=== PATIENT | male | born 1965 | race Caucasian/White ===

== ENCOUNTER 2020-10-10 09:31 | Emergency (ER) | payer BC, SELFPAY ==
[2020-10-10 09:35] VITALS: BP 134/89; PULSE 86; RESP 19; TEMP 36.8; O2SAT 100; BMI 27.0
--- NOTE | 2020-10-10 10:08 | HMH.EDUTC ---
[facility] [place]ression: Puncture wound Disposition: Home, Self-Care Condition on Discharge: Good Instructions: DI for Puncture Wound Additional Instructions: Keep area clean and dry and allow steri strip to fall off Follow up with Urology as scheduled Return if needed Over the counter Motrin and/or Tylenol as directed on package for pain Straight to ER if any difficulty urinating or any life threatening symptoms Ice packs to the area may help with pain and swelling Referrals: Shari Neil [Primary Care Provider] - As needed Time of Disposition: 10:41 Medical Decision Making - Flynn Inquiry Pt receiving controlled substance: No Flynn was queried for this patient: No Vital Signs: 10/10/20 09:35 10/10/20 10:27 Temperature 98.2 F 98.2 F Temperature Source Oral Pulse Rate 86 Pulse Rate [Left Brachial] 86 Respiratory Rate 19 19 Blood Pressure 134/89 Blood Pressure [Left Arm] 134/89 Blood Pressure Mean [Left Arm] 104 Blood Pressure Source [Left Arm] Automatic Cuff Blood Pressure Position [Left Arm] Sitting 02 Sat by Pulse Oximetry 100 Oxygen Delivery Method Room Air Medical Decision Narrative: Patient states that he is suppose to be having an appointment with Urology and will call and make appointment for further evaluation and treatment No active swelling at this time in his testicles ER physician came to [facility] and viewed area and agreed Steri strip and follow up with Urology as scheduled Steri strip placed on puncture wound no active bleeding [facility] [place] - General Stated complaint: ao @0915 injury to scrotum/testicles Time Seen by Provider: 10/10/20 10:08 Mode of Arrival: Ambulatory Source of Information: Patient Limitations: No Limitations Description of Symptoms (Recalled from Triage Doc. by RN): PATIENT C/O INJURY TO SCROTUM AFTER A DRILL BIT CAUGHT HIM APPROX 30 MINUTES [employer] HEENT Symptoms (Recalled from RN notes): No Resp Symptoms (Recalled from RN notes): No Skin Symptoms (Recalled from RN notes): No MS Symptoms (Recalled from RN notes): No Functional Status (Recalled from RN notes): WNL - History of Present Illness Provider Complaint: Patient states that he was using a drill and was sitting staddle the board when the drill bit caught his shorts and twisted up his shorts and caught his testicle States that he kept his barrings and reversed the drill instead of jerking it states that he noticed a small tear/laceration where the skin on the testicle meets his penis no active bleeding at this time - Related Data Home Medications Medication Instructions Recorded Confirmed Fluticasone/Vilanterol [Breo 1 puff IH DAILY 10/10/20 10/10/20 Ellipta 200-25 Mcg INH] Allergies Allergy/AdvReac Type Severity Reaction Status Date / Time No Known Allergies Allergy Verified 10/10/20 09:48 - Worker's Comp Is this a Worker's Comp case?: No [facility] History - Hepatitis A Screen Drug use history?: No High risk sexual behaviors?: No History of sexually transmitted infection?: No Currently employed?: No Childcare worker?: No Do you have indoor plumbing?: Yes Do you have electricity?: Yes Attestation statement:: This patient has been screened for Hepatitis A risk factors. I have reviewed the patient's past medical history: Yes - 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 Alcohol Intake: never Occupational Status: other ROS Obtained: Yes All systems reviewed & no additional complaints, Yes Systems reviewed as appropriate & no additional complaints - Constitutional Constitutional: Reports system reviewed and no additional complaints, except as docu - ENT Ears, Nose, Mouth, and Throat: Reports system reviewed and no additional complaints, except as docu - Cardiovascular Cardiovascular: Reports system reviewed and no additional complaints, except as docu - Respiratory Respiratory: Reports system reviewed and no additional complaints, except as docu - Gastrointestinal Gastrointestin
[2020-10-10 10:27] VITALS: BP 134/89; PULSE 86; RESP 19; TEMP 36.8; O2SAT 100
== END 2020-10-10 10:30 | disposition home or self-care (01) ==
PROVIDERS: Emergency Provider Nurse Practitioner; PCP Family Medicine
DX: S31.33XA Puncture wound without foreign body of scrotum and testes, initial encounter (principal); W31.0XXA Contact with mining and earth-drilling machinery, initial encounter; Y92.9 Unspecified place or not applicable
CPT/HCPCS: 99202; G0463

== ENCOUNTER 2021-01-08 12:33 | Emergency (ER) | payer BC, SELFPAY ==
[2021-01-08 12:34] VITALS: BP 132/88; PULSE 78; RESP 16; TEMP 36.9; O2SAT 95; BMI 28.8
--- NOTE | 2021-01-08 13:38 | HMH.EDUTC ---
[facility] [place] Clinical Impression: Poison orula dermatitis Contact dermatitis Qualifiers: Contact dermatitis type: unspecified Contact dermatitis trigger: unspecified trigger Qualified Code(s): L25.9 - Unspecified contact dermatitis, unspecified cause Disposition: Home, Self-Care Condition on Discharge: Good Instructions: DI for Poison Roula Allergy Additional Instructions: Avoid contact with the offending substance (poison roula). Don't start the oral steroids until tomorrow. Don't put the topical steroids (triamcinolone) on your face or your groin. Follow up with your regular doctor. GO TO THE ER FOR ANY WORSENING SYMPTOMS OR CONCERNS Keep taking the benedryl regularly that you have been taking. It will still help some with your symptoms. Prescriptions: methylPREDNISolone [Medrol] 4 mg PO DIRECTED 6 Days #21 packet Transmission Status: Received by [id number] Triamcinolone Acetonide 1 applicatio TP TIDP PRN 7 Days #1 gm PRN Reason: Itching Transmission Status: Received by [id number] Referrals: Provider,Referral, MD [Primary Care Provider] - Time of Disposition: 13:54 Medical Decision Making - Medical Records Medical records reviewed: No: I reviewed the patient's medical records. - Flynn Inquiry Pt receiving controlled substance: No Vital Signs: 01/08/21 12:34 01/08/21 13:59 Temperature 98.4 F 98.3 F Temperature Source Oral Oral Pulse Rate 70 Pulse Rate [Right] 78 Respiratory Rate 16 16 Blood Pressure 130/87 Blood Pressure [Right Arm] 132/88 Blood Pressure Mean [Right Arm] 102 Blood Pressure Source Automatic Cuff Blood Pressure Source [Right Arm] Automatic Cuff Blood Pressure Position Sitting Blood Pressure Position [Right Arm] Sitting 02 Sat by Pulse Oximetry 95 Oxygen Delivery Method Room Air Room Air Orders (Tests/Meds): ED MEDICATIONS Discontinued Medications Generic Name Dose Route Start Last Admin Trade Name Freq PRN Reason Stop Dose Admin Methylprednisolone Sodium Succinate 125 mg 01/08/21 13:46 01/08/21 13:51 Methylprednisolone Sod Succ 125mg Vial IM 01/08/21 13:47 125 mg ONCE ONE Administration [facility] [place] HPI - General Stated complaint: poison roula/oak Time Seen by Provider: 01/08/21 13:38 Mode of Arrival: Ambulatory Source of Information: Patient Limitations: No Limitations Description of Symptoms (Recalled from Triage Doc. by RN): pt c/o poison roula all over his body HEENT Symptoms (Recalled from RN notes): No Resp Symptoms (Recalled from RN notes): No Skin Symptoms (Recalled from RN notes): Yes (poison roula) MS Symptoms (Recalled from RN notes): No Functional Status (Recalled from RN notes): na - History of Present Illness Provider Complaint: He states that about 10 days ago he got exposed to poison roula. He has a history of being very sensitive to poison roula. Since then he has had a worsening rash on his abomen, left upper leg, neck and bilateral arms. He states that he usually has to get a steroid shot to get it started getting better. He denies any history of diabetes or other complaints. - Related Data Home Medications Medication Instructions Recorded Confirmed Fluticasone/Vilanterol [Breo 1 puff IH DAILY 10/10/20 10/10/20 Ellipta 200-25 Mcg INH] Previous Rx's Medication Instructions Recorded Triamcinolone Acetonide 1 applicatio TP TIDP PRN 7 Days #1 01/08/21 gm methylPREDNISolone [Medrol] 4 mg PO DIRECTED 6 Days #21 01/08/21 packet Allergies Allergy/AdvReac Type Severity Reaction Status Date / Time No Known Allergies Allergy Verified 10/10/20 09:48 - Worker's Comp Is this a Worker's Comp case?: No [facility] History - Hepatitis A Screen Drug use history?: No High risk sexual behaviors?: No History of sexually transmitted infection?: No Currently employed?: No Childcare worker?: No Do you have indoor plumbing?: Yes Do you have electricity?: Yes Attestation statement::
[2021-01-08 13:59] VITALS: BP 130/87; PULSE 70; RESP 16; TEMP 36.8; O2SAT 98
== END 2021-01-08 14:01 | disposition home or self-care (01) ==
PROVIDERS: Emergency Provider Nurse Practitioner Family
DX: L23.7 Allergic contact dermatitis due to plants, except food (principal)
CPT/HCPCS: 96372; 99202; G0463

== ENCOUNTER 2022-01-10 12:00 | Emergency (ER) | payer BC, SELFPAY ==
[2022-01-10 12:15] VITALS: BP 157/108; PULSE 69; RESP 18; TEMP 36.6; O2SAT 97; BMI 30.4
[2022-01-10 12:30] VITALS: BP 152/105; PULSE 78; O2SAT 95
--- NOTE | 2022-01-10 12:30 | ECG_ITS ---
APPROVED REPORT Exam: Resting ECG HR:69 bpm ECG Measurements Heart Rate 69 AXES AZ 159 P 42 QRSd 98 QRS 60 QT 393 T 31 QTc 411 Conclusion SINUS RHYTHM NORMAL ECG UNCONFIRMED REPORT Electronically signed by : Sam Ramirez MD 01/10/2022 17:13:10
[2022-01-10 12:35] LABS: Basophils # 0.2 K/mm3 (0-0.2); Basophils % 1.5 % (0.1-2.0); Eosinophils # 0.7 K/mm3 (0.0-0.4); Eosinophils % 6.7 % (0.1-12.0); Hematocrit 51.9 % (42.0-52.0); Hemoglobin 16.7 g/dL (14.1-18.0); Lymphocytes # 2.5 K/mm3 (0.7-4.5); Lymphocytes % 23.7 % (10-50); Mean Corpuscular HGB Conc 32.1 g/dL (31.8-35.4); Mean Corpuscular Hemoglobin 30.3 pg (27.0-31.2); Mean Corpuscular Volume 94.2 fl (80-94); Mean Platelet Volume 8.1 fl (7.4-10.4); Monocytes # 0.7 K/mm3 (0.1-1.0); Monocytes % 6.8 % (1.7-9.3); Neutrophils # 6.6 K/mm3 (1.8-7.8); Neutrophils % 61.3 % (37.0-80.0); Platelet Count 294 K/mm3 (142-424); Red Blood Count 5.51 M/mm3 (4.60-6.20); Red Cell Distribution Width 13.5 % (11.5-17.5); White Blood Count 10.7 K/mm3 (4.8-10.8)
[2022-01-10 12:39] LABS: Alanine Aminotransferase 37 U/L (12-78); Albumin Level 4.4 g/dl (3.5-5.0); Albumin/Globulin Ratio 1.5 (1.1-1.8); Alkaline Phosphatase 69 U/L (38-126); Anion Gap 13.2 mEq/L (5-15); Aspartate Amino Transferase 42 U/L (17-59); Bilirubin,Total 0.5 mg/dl (0.2-1.3); Blood Urea Nitrogen 16 mg/dl (9-20); Calcium 9.3 mg/dl (8.4-10.2); Carbon Dioxide 30 mmol/L (22.0-30.0); Chloride 101 mmol/L (98-107); Creatinine Clearance Estimated 134 mL/min (50-200); Estimated Glomerular Filt Rate 100 ml/min (>60); GFR (African American) 121 ML/MIN (>60); Glucose 80 mg/dl (74-100); Potassium 4.2 mmoL/L (3.5-5.1); Sodium 140 mmol/L (136-145); Total Protein,Serum 7.4 g/dl (6.3-8.2)
--- NOTE | 2022-01-10 12:53 | HMH.EDGENADL ---
Discharge Plan Disposition Patient Disposition: Home, Self-Care Condition: Good Prescriptions Prescriptions: New lisinopril 10 mg tablet 10 mg PO DAILY Qty: 30 0RF Referrals Follow up/Referrals: Shari Neil [Primary Care Provider] - See instructions Activity Restrictions/Add. Instructions Additional Instructions/Restrictions: Lisinopril as prescribed. Follow-up with your primary care provider, call for appointment. Clinical Impressions Clinical Impression: Essential hypertension Discharge ED Provider: Edd Miles General Adult HPI General Chief complaint: Recheck/Abnormal Lab/Rx Stated complaint: blood pressure high Time Seen by Provider: 01/10/22 12:54 Mode of Arrival: Ambulatory Source of Information: Patient Limitations: No Limitations Description of Symptoms (Recalled from ER Triage Doc. by RN): pt states he has had elevated blood pressure for 2 days, he has had no energy and decided to check his blood pressure because he had these same problems 10-15 years ago that resulted in him being on lisinopril for a bit, lisinopril bottomed him out and he had to come off of it, no problems since, denies CP and SOB, states he has a mild headache History of Present Illness HPI narrative: Patient states that his blood pressure is high. He has been feeling tired for the past few days and therefore has been checking his blood pressure. He says his blood pressure has been running high, which is not normal for him. He says that he checks his blood pressure fairly regularly and usually runs 120/80. He says that other than feeling tired no specific symptoms. Denies chest pain or shortness of breath. His only visual disturbance is a little trouble seeing at night. Has some mild headaches. 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 States that he had high blood pressure diagnosed 10 to 15 years ago and was on lisinopril, he thinks possibly 10 mg, for about 30 to 40 days, but then his blood pressure dropped and he was taken off of it. He has not been on any antihypertensive medications since then. He has no other medical problems and is on no other medications. Patient states that his called his primary care provider regarding his elevated blood pressure and they advised him to come to the emergency department for evaluation and treatment. He uses smokeless tobacco. He does not use any drugs. Denies alcohol intake. Related Data Previous Rx's Medication Instructions Recorded lisinopril 10 mg tablet 10 mg PO DAILY #30 tabs 01/10/22 Allergies Allergy/AdvReac Type Severity Reaction Status Date / Time Sulfa (Sulfonamide Allergy Verified 01/10/22 12:23 Antibiotics) PFSH [facility] 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 Smoking Status: Never smoker alcohol intake: never current occupational status: other Travel in the last 8 weeks: None ROS Obtained: Yes Systems reviewed as appropriate & no additional complaints except as documented Constitutional Constitutional: Reports fatigue, Reports headache(s) and Denies weakness Eyes Eyes: Reports as per HPI ENT Ears, Nose, Mouth, and Throat: Reports headache(s) Cardiovascular Cardiovascular: Denies chest pain Respiratory Respiratory: Denies shortness of breath Musculoskeletal Musculoskeletal: Denies numbness Neurologic Neurologic: Reports as per HPI, Reports headache(s), Denies numbness and Denies weakness Endocrine Endocrine: Reports fatigue Physical Exam General General appearance: alert and in no apparent distress Head Head exam: atraumatic and normocephalic Eye Eye exam: Present normal appearance Neck Neck exam: Present normal inspection and trachea midline Chest Chest inspection: Present normal inspection and symmetric chest wall rise Respiratory Respiratory exam: Present normal lung sounds bilaterally; Absent
[2022-01-10 12:54] LABS: Troponin I < 0.01 ng/ml (0.00-0.034)
[2022-01-10 13:00] VITALS: BP 163/110; PULSE 74; TEMP 36.8; O2SAT 97
[2022-01-10 13:14] VITALS: BP 154/100; PULSE 65; RESP 18; O2SAT 97
[2022-01-10 13:20] VITALS: BP 154/100; PULSE 70; RESP 16; TEMP 36.9; O2SAT 95
== END 2022-01-10 13:24 | disposition home or self-care (01) ==
PROVIDERS: Emergency Provider Emergency Medicine; PCP Family Medicine
DX: I10 Essential (primary) hypertension (principal); Z88.2 Allergy status to sulfonamides
CPT/HCPCS: 80053; 84484; 85025; 93005; 99283

== ENCOUNTER 2023-05-02 18:47 | Emergency (ER) | payer BC, SELFPAY ==
[2023-05-02 19:50] VITALS: BP 143/84; PULSE 82; RESP 16; TEMP 36.9; O2SAT 95; BMI 29.6
--- NOTE | 2023-05-02 20:04 | EXP.UTC ---
Discharge Plan Disposition Patient Disposition: Home, Self-Care Condition: Good Prescriptions Prescriptions: New azithromycin [azithromycin] 250 mg tablet 250 mg PO DIRECTED Qty: 6 0RF Rx Instructions: Take two (2) tablets on day #1, then one (1) tablet day #2 thru #5 No Action amlodipine 2.5 mg tablet 2.5 mg PO DAILY Referrals Follow up/Referrals: Shari Neil [Primary Care Provider] - See instructions Activity Restrictions/Add. Instructions Additional Instructions/Restrictions: Start antibiotic patient to take as ordered for a full length of time even if you feel better. Sinus infections do not get better overnight. It may take 2-3 days to notice much improvement so be sure to use conservative measures as discussed for symptoms. Flonase 1 spray each nostril daily to help with nasal congestion, sinus and ear pressure/information Increase fluids Humidifier/vaporizer as needed Tylenol and ibuprofen as needed for fever or pain. If symptoms do not improve or get worse return or be seen in the ER Follow-up with primary care this week Clinical Impressions Clinical Impression: Acute maxillary sinusitis Qualifiers: Recurrence: non-recurrent Qualified Code(s): J01.00 - Acute maxillary sinusitis, unspecified Instructions Patient Instructions: DI for Sinusitis Discharge ED Provider: Arden ([facility])[place] [facility] [place] General Stated complaint: cough, fever, sav SOA Mode of Arrival: Ambulatory Source of Information: Patient Limitations: No Limitations Time Seen by Provider: 05/02/23 20:04 Description of Symptoms (Recalled from Triage Doc. by RN): cough, fatigue, hot and cold flashes, and fever. HEENT Symptoms (Recalled from RN notes): Yes Resp Symptoms (Recalled from RN notes): No Skin Symptoms (Recalled from RN notes): No MS Symptoms (Recalled from RN notes): No Functional Status (Recalled from RN notes): n/a History of Present Illness Provider Complaint: 57 yr old male presents for cough, fatigue, hot and cold flashes, and fever for 3 weeks, pt states he will start antibiotics and improve then 4 days after finishing antibiotics the symptoms return Related Data Home Medications Medication Instructions Recorded Confirmed amlodipine 2.5 mg tablet 2.5 mg PO DAILY 05/02/23 05/02/23 Previous Rx's Medication Instructions Recorded azithromycin 250 mg tablet 250 mg PO DIRECTED #6 tabs 05/02/23 Allergies Allergy/AdvReac Type Severity Reaction Status Date / Time Sulfa (Sulfonamide Allergy Verified 05/02/23 20:00 Antibiotics) Worker's Comp Is this a Worker's Comp case?: No [facility] Disclaimer: The information contained in this section may have been updated after the patient was seen, as this information can be updated by other users. 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) Smoking Status: Never smoker alcohol intake: never current occupational status: other Travel in the last 8 weeks: None ROS Obtained: Yes All systems reviewed & no additional complaints except as documented Constitutional Constitutional: Reports system reviewed and no additional complaints, except as documented and Reports as per HPI Eyes Eyes: Reports system reviewed and no additional complaints, except as documented ENT Ears, Nose, Mouth, and Throat: Reports system reviewed and no additional complaints, except as documented, Reports as per HPI, Reports nasal congestion, Reports nasal discharge, Reports sinus pain and Reports sinus pressure Cardiovascular Cardiovascular: Reports system reviewed and no additional complaints, except as documented Respiratory Respiratory: Reports system reviewed and no additional complaints, except as documented Musculoskeletal Musculoskeletal: Reports system reviewed and no additional complaints, except as documented Integumentary/Breasts Skin/Breast: Reports system reviewed and no additional complaints, except as documented Neurologic Neurologic: Reports system reviewed and no additional complaints, except as documented Endocrine Endocrine: Reports system reviewed and no additional complaints, except as documented Hematologic/Lymphatic Henatologic/Lymphatic: Reports system reviewed and no additional complaints, except as documented Allergic/Immunologic Allergic/Immunologic: Reports system reviewed and no additional complaints, except as documented Physical Exam General General appearance: alert and in no apparent distress Head Head exam: atraumatic Eye Eye exam: Present normal appearance and PERRL ENT ENT exam: Present normal oropharynx, mucous membranes moist and TM's normal bilaterally Expanded ENT Exam Nose exam: Present sinus tenderness Respiratory Respiratory exam: Present normal lung sounds bilaterally Cardiovascular Cardiovascular exam: Present regular rate and normal rhythm Neurological Exam Neurological exam: Present alert and oriented X3 Medical Decision Making Medical Records Medical records reviewed: Yes I reviewed the patient's medical records. Flynn Inquiry Pt receiving controlled substance: No Flynn was queried for this patient: No Vital Signs: 05/02/23 19:50 Temperature 98.5 F Temperature Source Oral Pulse Rate [Right Radial] 82 Respiratory Rate 16 Blood Pressure [Right Arm] 143/84 H Blood Pressure Mean [Right Arm] 103 Blood Pressure Source [Right Arm] Automatic Cuff Blood Pressure Position [Right Arm] Sitting 02 Sat by Pulse Oximetry 95 Oxygen Delivery Method Room Air Lab Data Lab results reviewed: Yes I reviewed the patient's lab results.
[2023-05-02 20:11] LABS: UTC Influenza A Antigen Negative (Negative); UTC Influenza B Antigen Negative (Negative)
[2023-05-02 20:19] VITALS: BP 143/94; PULSE 82; RESP 16; TEMP 36.9; O2SAT 95
== END 2023-05-02 20:19 | disposition home or self-care (01) ==
PROVIDERS: Emergency Provider Nurse Practitioner Family; PCP Family Medicine
DX: J01.00 Acute maxillary sinusitis, unspecified (principal); R50.9 Fever, unspecified; R05.9 Cough, unspecified; R53.83 Other fatigue
CPT/HCPCS: 87804; 99212; 99214; G0463